=== PATIENT | male | born 1960 | race American Indian/Alaskan Native ===

== ENCOUNTER 2016-10-28 12:36 | Inpatient (IN) | payer MEDICAID ==
--- NOTE | 2016-10-28 13:29 | XRay Report ---
CHEST TWO VIEWS: 10/28/16 12:36:00 CLINICAL: Shortness of breath. COMPARISON: None FINDINGS: The heart is large. Central vascular congestion and bilateral perihilar and basal reticular interstitial opacities. No pulmonary consolidation. No pleural effusion. IMPRESSION: CHF with bilateral interstitial pulmonary edema.
[2016-10-28 13:30] LABS: Anion Gap 18 mmol/L; BUN/Creatinine Ratio 7.77; Blood Urea Nitrogen 7 mg/dL (9-20); Carbon Dioxide 27 mmol/L (22-30); Chloride 101.8 mmol/L (98-107); Glucose 109 mg/dL (75-100); Potassium 3.8 mmol/L (3.6-5.0); Sodium 143 mmol/L (137-145)
[2016-10-28 13:33] LABS: Basophils % (Auto) 0.6 % (0.0-1.8); Eosinophils % (Auto) 1.3 % (0.0-4.3); Hematocrit 42.8 % (35.5-45.6); Hemoglobin 13.7 gm/dl (11.8-15.2); Mean Corpuscular HGB Conc 32 % (32-34); Mean Corpuscular Hemoglobin 30 pg (28-32); Mean Corpuscular Volume 93 fl (84-94); Platelet Count 251 K/mm3 (140-440); Red Blood Count 4.63 M/mm3 (3.65-5.03); Red Cell Distribution Width 14.7 % (13.2-15.2); White Blood Count 14.2 K/mm3 (4.5-11.0)
[2016-10-28] MEDS ORDERED: CARDIZEM IV ONE (13:35)
[2016-10-28] MEDS ORDERED: CARDIZEM/D5W 100MG/100ML 100 MG/100 ML BAG IV ONE (13:35)
[2016-10-28] MEDS ORDERED: LOVENOX SUB-Q ONE (13:37)
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
[2016-10-28] MEDS ORDERED: LASIX IV ONE (13:47)
[2016-10-28 13:49] LABS: INR 1.02 (0.87-1.13)
[2016-10-28] MEDS ORDERED: MORPHINE IV ONE ×2 (13:49→22:12)
[2016-10-28] MEDS ORDERED: ZOFRAN IV ONE (13:49)
[2016-10-28] MEDS ORDERED: NITRO-BID 2% TP ONE (13:50)
[2016-10-28] MEDS ORDERED: ASPIRIN PO ONE (13:50)
[2016-10-28 14:25] LABS: Urine Drugs of Abuse Note Disclamer
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
[2016-10-28 14:41] LABS: Creatine Kinase MB 4.3 ng/mL (0.0-4.0)
--- NOTE | 2016-10-28 14:52 | History and Physical Report ---
History of Present Illness Chief complaint: My heart felt funny History of present illness: 55 YO Male with ARTEM, DM, HTN, Obesity,HLD, Sarcoidosis presents to ED for evaluation. Pt states that he had been feeling anxious with shortness of breath , and chest tightness as well as feeling like his heart was racing for the past day with worsening symptoms over the past 1/5 hours. Pt denies syncope, fever, chills, NVD, Syncope, Orthopnea/PND, unintentional weight loss, night sweats, or recent ill contacts. Pt seen and evaluated in ED and found to have new onset Atrial Fib on EKG. Pt treated with supportive care, and pain control with conversion to NSR. Cardiology consulted in ED. Past History Past Medical History: diabetes, hypertension, hyperlipidemia, other (Obesity, ARTEM, Sarcoidosis) Past Surgical History: hernia repair Social history: single, lives with family. denies: smoking, alcohol abuse, prescription drug abuse Family history: diabetes, hypertension Medications and Allergies Allergies Allergy/AdvReac Type Severity Reaction Status Date / Time sulfabenzamide Allergy Hives Verified 10/28/16 12:57 Active Meds: Active Medications Diltiazem HCl (Cardizem/D5w 100mg/100ml) 100 mg in 100 mls @ 5 mls/hr IV TITR ONE; 5 MG/HR PRN Reason: Protocol Stop: 10/29/16 09:34 Review of Systems All systems: negative Cardiovascular: palpitations, lightheadedness Respiratory: cough Exam - Constitutional Vitals: Temp Pulse Resp BP Pulse Ox 97.5 F L 80 32 H 149/98 96 10/28/16 12:47 10/28/16 12:47 10/28/16 12:47 10/28/16 12:47 10/28/16 12:47 General appearance: Present: mild distress, obese - EENT Eyes: Present: PERRL ENT: hearing intact, clear oral mucosa - Neck Neck: Present: supple, normal ROM - Respiratory Respiratory: bilateral: diminished - Cardiovascular Rhythm: irregularly irregular - Extremities Extremities: pulses symmetrical, No edema Extremity abnormal: edema Peripheral Pulses: within normal limits - Abdominal General gastrointestinal: Present: soft, non-tender, non-distended, normal bowel sounds Male genitourinary: Present: normal - Integumentary Integumentary: Present: clear, dry - Musculoskeletal Musculoskeletal: strength equal bilaterally, generalized weakness - Psychiatric Psychiatric: appropriate mood/affect, cooperative - Neurologic Neurologic: CNII-XII intact Results - Labs CBC & Chem 7: 10/28/16 12:59 10/28/16 12:59 Labs: Abnormal lab results 10/28/16 10/28/16 10/28/16 Range/Units 12:59 12:59 12:59 WBC 14.2 H (4.5-11.0) K/mm3 [place] # 1.0 H (0.0-0.8) K/mm3 Seg Neutrophils % 76.4 H (40.0-70.0) % Seg Neutrophils # 10.9 H (1.8-7.7) K/mm3 BUN 7 L (9-20) mg/dL Glucose 109 H (75-100) mg/dL Total Creatine Kinase 225 H (55-170) units/L CK-MB (CK-2) 4.3 H (0.0-4.0) ng/mL Assessment and Plan - Patient Problems (1) CHF (congestive heart failure) Current Visit: Yes Status: Acute Qualifiers: Congestive heart failure type: C Congestive heart failure chronicity: C Plan to address problem: Cardiology consulted, echo, serial cardiac enzymes, telemetry, fluid restriction , afterload reduction, monitor uop q shift (2) Diabetes Current Visit: Yes Status: Acute Qualifiers: Diabetes mellitus type: D Diabetes mellitus complication status: D Diabetes mellitus complication detail: D Diabetic retinopathy severity: D Proliferative retinopathy type: P Diabetes mellitus macular edema: D Diabetes mellitus skilled nursing insulin use: D Laterality: L Chronic kidney disease stage: C Plan to address problem: ADA diet, insulin, accu check (3) ARTEM (obstructive sleep apnea) Current Visit: Yes Status: Acute Plan to address problem: CPAP at night, supportive care. (4) Atrial fibrillation with RVR Current Visit: Yes Status: Acute Plan to address problem: Pt converted to NSR, supportive care, telemetry, cardiology consulted. (5) HTN (hypertension) Current Visit: Yes Status: Acute Qualifiers: Hypertension type: H Plan to address problem: monitor bp q shift (6) DVT prophylaxis Current Visit: Yes Status: Acute
[2016-10-28] MEDS ORDERED: DUONEB *Not for PRN Use IH (15:02)
[2016-10-28] MEDS ORDERED: TYLENOL PO PRN (15:02)
[2016-10-28] MEDS ORDERED: PROVENTIL IH PRN (15:11)
[2016-10-28 15:54] LABS: Bilirubin,Urine NEG (Negative); Blood,Urine NEG (Negative); Ketones,Urine NEG (Negative); Leukocyte Esterase,Urine NEG (Negative); Nitrite,Urine NEG (Negative); Protein,Urine <15 mg/dL mg/dL (Negative); Urobilinogen,Urine < 2.0 mg/dL (<2.0)
--- NOTE | 2016-10-28 16:12 | Consultation ---
History of Present Illness Consult date: 10/28/16 Consult reason: atrial fibrillation History of present illness: This is a 55-year-old gentleman who comes to the emergency room with a feeling of anxiety and palpitations that started this morning. Patient came to the emergency room and he was noted to have atrial fibrillation with rapid ventricular response. Patient is known to have had hypertension for a long time as well as diabetes and hyperlipidemia. Patient has no significant chest pain at this time. When the palpitations started he did notice some chest tightness. No prior history of chest pain on exertion to suggest angina pectoris. Patient spontaneously converted to sinus rhythm. Patient had no previous history of firm atrial fibrillation. No history of thyroid problems. Patient is known to have sarcoidosis. No prior myocardial infarction congestive heart failure or cardiac murmur or cardiomegaly. Patient is in the process of stopping smoking and currently smoking about 2 cigarettes a day used to smoke a pack a day. Nonalcoholic. Past History Past Medical History: diabetes, hypertension, hyperlipidemia, other (Obesity, ARTEM, Sarcoidosis) Past Surgical History: hernia repair Social history: single, lives with family. denies: smoking, alcohol abuse, prescription drug abuse Family history: diabetes, hypertension Medications and Allergies Allergies Allergy/AdvReac Type Severity Reaction Status Date / Time sulfabenzamide Allergy Hives Verified 10/28/16 12:57 Active Meds: Active Medications Acetaminophen (Tylenol) 650 mg PO Q4H PRN PRN Reason: Pain MILD(1-3)/Fever >100.5/COFFEY Albuterol (Proventil) 2.5 mg IH Q4HRT PRN PRN Reason: Shortness Of Breath Furosemide (Lasix) 20 mg IV BID@0600,1800 [facility] Diltiazem HCl (Cardizem/D5w 100mg/100ml) 100 mg in 100 mls @ 5 mls/hr IV TITR ONE; 5 MG/HR PRN Reason: Protocol Stop: 10/29/16 09:34 Last Admin: 10/28/16 14:58 Dose: Not Given Metoprolol Tartrate (Lopressor) 12.5 mg PO BID [facility] Review of Systems Ears, nose, mouth and throat: other (no symptoms) Cardiovascular: palpitations, shortness of breath Respiratory: other (no symptoms) Gastrointestinal: other (and) Genitourinary Male: other (no symptoms) Neurological: other (no symptoms) Physical Examination Vital Signs Temp Pulse Resp BP Pulse Ox 97.5 F L 80 32 H 149/98 96 10/28/16 12:47 10/28/16 12:47 10/28/16 12:47 10/28/16 12:47 10/28/16 12:47 General appearance: no acute distress, other (obese) HEENT: Positive: PERRL Neck: Positive: neck supple Cardiac: Positive: Reg Rate and Rhythm Lungs: Positive: clear to auscultation Abdomen: Positive: Soft, Other (surgical scar is present) Extremities: Present: normal Results 10/28/16 12:59 10/28/16 12:59 Assessment and Plan This 55-year-old gentleman presented to the emergency room with palpitations. #1 new onset atrial fibrillation with rapid ventricular response. Patient spontaneously converted to sinus rhythm #2 hypertension #3 diabetes #4 hyperlipidemia #5 obesity #6 history of sarcoidosis Patient spontaneously converted to sinus rhythm. Agree with current management. Will need ischemic evaluation once stable. Patient will be followed closely. 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
[2016-10-28] MEDS ORDERED: TYLENOL ONE (17:16)
[2016-10-28] MEDS: LASIX IV SCH (20:43)
[2016-10-28] MEDS ORDERED: LEVEMIR SUB-Q SCH (22:14)
[2016-10-28] MEDS: NOVOLOG SUB-Q SCH (22:31)
[2016-10-28] MEDS: LOPRESSOR PO SCH (22:33)
[2016-10-29] MEDS: LASIX IV SCH (06:16)
[2016-10-29] MEDS ORDERED: MORPHINE IV ONE (06:48)
[2016-10-29 07:01] LABS: Creatine Kinase MB 2.5 ng/mL (0.0-4.0)
[2016-10-29] MEDS: NOVOLOG SUB-Q SCH ×3 (07:50→16:15)
[2016-10-29] MEDS ORDERED: LEXISCAN IV ONE (09:33)
[2016-10-29] MEDS: LOPRESSOR PO SCH (11:42)
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
--- NOTE | 2016-10-29 15:40 | Event Note ---
Date: 10/29/16 Lexiscan nuclear stress scan done on 10/29/2016. Dictated by Dr. Seda Eldridgezhvnathan. Patient received are 10 mCi of technetium 99m Myoview intravenously and are resting conditions. Resting myocardial perfusion scan was done. Subsequently patient underwent Lexiscan stress test as per the protocol. Patient received 28 mCi of technetium 99 M intravenously during the stress test. After 30-60 minutes, post stress images were done. Computerized reconstruction of the images was performed for analysis. The poststress images revealed uniform distribution of the radiopharmaceutical in the left ventricular myocardium. Resting images were also normal. Gated study did not reveal any wall motion abnormality. The left ventricular ejection fraction was normal and was calculated to be 67%. 1. No perfusion abnormality of the left ventricle myocardium was demonstrated in the resting as well as stress images after the patient underwent Lexiscan stress test. 2. No wall motion abnormality.. 3. Normal left ventricular systolic function and the LVEF was calculated to be 67%.
--- NOTE | 2016-10-29 15:48 | Admit Criteria Form ---
Admission Criteria Documentation: ATRIAL FIBRILLATION Clinical Indications for Admission to Inpatient Care (Place 'X' for any and all applicable criteria): Admission indicated for ANY ONE of the following(1)(2)(3)(4)(5) : [ ]I. Myocardial ischemia [ ]II. Dyspnea or hypoxemia [ ]III. Hemodynamic instability [ ]IV. Heart failure (e.g., pulmonary edema) (7) [X ]V. New-onset (less than 48 hours) atrial fibrillation with high risk for causing complications secondary to comorbidities (eg, symptomatic heart failure ) [ ]. Altered mental status [ ]VII. Syncope [ ]VIII. Patient has implantable cardioverter defibrillator that has fired more than once within past 24hr or needs immediate adjustment of settings that cannot be done other than in inpatient setting. (8) [ ]IX. Suspected accessory pathway (e.g., Kgjdp-Vewocygbk-Ztlgl syndrome) on ECG [ ]X. Recent systemic thromboembolism (eg, stroke) [ ]XI. Medication toxicity (e.g., digitalis) causing arrhythmia(9) [ ]XII. Underlying medical condition that necessitates inpatient care (e.g., thyrotoxicosis, pneumonia) (10) [ ]XIII. Continuous ECG monitoring is required for condition causing arrhythmia (e.g., severe hyperkalemia, hypokalemia, acid-base disturbance).(11)(12)(13) [ ]XIV. Initiation of antiarrhythmic drug therapy is needed in patient at high risk of adverse effects as indicated by ANY ONE of the following: [ ]a) Significant structural heart disease (e.g., reduced ejection fraction, congenital heart disease, valvular heart disease) [ ]b) Prolonged QT interval [ ]c) Underlying sinus node or atrioventricular conduction disturbances [ ]d) Need for treatment with antiarrhythmic drugs that have significant proarrhythmic potential (e.g., dofetilide, sotalol, procainamide) [ ]e) Patient whose sinus rhythm has never been observed on ECG [ ]XV. Intolerable symptoms despite optimal outpatient treatment [ ]XVI. Elective or urgent cardioversion that cannot be performed on outpatient basis or during observation care. [A] (Use also Atrial Fibrillation: Observation Care ) as appropriate.(14) [ ]XVII.Contraindications and/or Inappropriate clinical situations for Observational Care in patients with Atrial Fibrillation, when ANY ONE of the following is required: [ ]a) Patient with High risk of cardiac embolism (e.g, patients with previous cardiac embolism, LVEF < 40%, age >75 and patients with prosthetic valve) 18 [ ]b) Patient with Moderate risk including DM patient, CAD and patient aged 65-75 18 [ ]c) Patient with any change in cardiac biomarker especially troponin should be managed as high risk in an inpatient setting 19 [ ]d) Physician judgement irrespective of ECG and other diagnostic findings 20 [ ]XVIII.General contraindications and/or Inappropriate clinical situations for Observational Care in patients with Atrial Fibrillation, when ANY ONE of the following is required: [ ]a) Prediction of prolongation of LOS based on ANY ONE of the following may be considered as a contraindication for observational care 2, 3, 4, 5, 6, 7, 8, 9, 10, 11 [ ]i) Age > 65 yrs. [ ]ii) Patient arriving by ambulance [ ]iii) Patient with high acuity [ ]iv) Patient requiring vital sign monitoring [ ]v) Patient on IV medication [ ]b) Systolic blood pressures 180mmHg 3,12 [ ]c) Patient with altered mental status including delirium and other alteration of consciousness3 [ ]d) Patient whose discharge disposition will be to a fdc home or rehabilitation home should not be managed in Emergency Department Observation Unit. CMS rule requires 3 days hospital stay before such placement.3,13 [ ]e) Patient with failure to thrive due to broad array of etiologies 3,16,17 [ ]f) Inability to ambulate 3,14 Extended stay beyond goal length of stay may be needed for (1)(25)(26): [ ]a) Unstable comorbidities [ ]b) Persistently uncontrolled atrial fibrillation or other arrhythmias [ ]c) Acute thromboembolic event (e.g., stroke, limb ischemia) [ ]d) Need for inpatient attainment of full anticoagulation The original [employer] content created by [employer] has been revised. The portions of the content which have been revised are identified through the use of italic text or in bold, and [facility] [employer] [employer] has neither reviewed nor approved the modified material. All other unmodified content is copyright [employer]. Please see references footnoted in the original [employer] edition 2016 Admission Criteria Met: Yes
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
[2016-10-29 17:19] VITALS: BP 156/84
== END 2016-10-29 17:41 | disposition home or self-care (01) | DRG 309 ==
LOC: ED 12:36 → 4A 15:02
PROVIDERS: ADMIT Internal Medicine; ATTEND Internal Medicine
DX: I48.91 Unspecified atrial fibrillation (principal); Z68.41 Body mass index [BMI] 40.0-44.9, adult; I50.9 Heart failure, unspecified; G47.30 Sleep apnea, unspecified; I10 Essential (primary) hypertension; E66.9 Obesity, unspecified; E11.9 Type 2 diabetes mellitus without complications; I11.0 Hypertensive heart disease with heart failure; D86.9 Sarcoidosis, unspecified; F17.210 Nicotine dependence, cigarettes, uncomplicated; E78.5 Hyperlipidemia, unspecified; Z88.8 Allergy status to other drugs, medicaments and biological substances; Z83.3 Family history of diabetes mellitus; Z82.49 Family history of ischemic heart disease and other diseases of the circulatory system
CPT/HCPCS: 36415; 71020; 72100; 78452; 80048; 80307; 81001; 82550; 82553; 82962; 83735; 83880; 84439; 84443; 84484; 85025; 85379; 85610; 85730; 93005; 93010; 93017; 93306; 94660; 96372; 96374; 96375; A9502; J1650; J1815; J1818; J1940; J2270; J2405; J2785